=== PATIENT | male | born 1945 | race Caucasian/White ===

== ENCOUNTER 2016-11-16 06:07 | Day surgery (SDC) | payer MEDICARE, OTHER ==
[~2016-11-16 06:07] MED LIST: ACET500CAP PO; ALLEGRA180 PO; ASAB PO; CIP5 PO; ELIQUIS 2.5 MG2.5 MG PO; FISH-EPA1000 MG PO; GLUCCHONDR PO; GLUCOPHAGE1000 MG PO; GLUCOTRO10 PO; GLUCOTROL5 PO; GLUCXL2.5 PO; HCTZ25B PO; IBU-200200 MG PO; LIPITOR20 PO; LISINOPRIL40 MG PO; MEVACOR40 MG PO; NORV10 PO; PERCOCET1 TA4 PO; Z300 PO
== END 2016-11-16 09:35 | disposition home or self-care (01) ==
LOC: SDC 06:07
PROVIDERS: Orthopaedic Surgery
PROC: 3E0R3BZ Introduction of Anesthetic Agent into Spinal Canal, Percutaneous Approach (ICD-10-PCS; 2016-11-16)
PROC: 3E0R33Z Introduction of Anti-inflammatory into Spinal Canal, Percutaneous Approach (ICD-10-PCS; principal; 2016-11-16 07:30)
DX: M54.16 Radiculopathy, lumbar region (principal); E78.00 Pure hypercholesterolemia, unspecified; I10 Essential (primary) hypertension; M19.90 Unspecified osteoarthritis, unspecified site; E11.9 Type 2 diabetes mellitus without complications; Z87.442 Personal history of urinary calculi; H91.90 Unspecified hearing loss, unspecified ear; Z96.649 Presence of unspecified artificial hip joint; Z88.0 Allergy status to penicillin; Z96.659 Presence of unspecified artificial knee joint; Z98.890 Other specified postprocedural states; Z79.82 Long term (current) use of aspirin; Z79.84 Long term (current) use of oral hypoglycemic drugs; Z79.899 Other long term (current) drug therapy
CPT/HCPCS: 82962; J1040; J2250; J3010; Q9967

== ENCOUNTER 2016-11-30 06:07 | Day surgery (SDC) | payer MEDICARE, OTHER | END 2016-11-30 08:51 | disposition home or self-care (01) | LOC: SDC 06:07 | PROVIDERS: Orthopaedic Surgery | PROC: 3E0R3BZ Introduction of Anesthetic Agent into Spinal Canal, Percutaneous Approach (ICD-10-PCS; 2016-11-30) | PROC: 3E0R33Z Introduction of Anti-inflammatory into Spinal Canal, Percutaneous Approach (ICD-10-PCS; principal; 2016-11-30 07:00) | DX: M54.16 Radiculopathy, lumbar region (principal); I10 Essential (primary) hypertension; E78.00 Pure hypercholesterolemia, unspecified; M19.90 Unspecified osteoarthritis, unspecified site; E11.9 Type 2 diabetes mellitus without complications; Z88.0 Allergy status to penicillin; Z87.442 Personal history of urinary calculi; Z98.890 Other specified postprocedural states | CPT/HCPCS: 82962; J1040; J2250; J3010; Q9967 ==